=== PATIENT | female | born 1980 | race Caucasian/White ===

== ENCOUNTER → 2016-07-01 | Outpatient (CLI) | payer OTHER ==
[~2016-07-01] MED LIST: DARVOCET-N6 EACH/PAK PO; FIORICET 325 MG1 TAB PO; FLEXERIL10 MG PO; IBUPROFEN 600M600 MG PO; KEFLEX 500MG.500 MG PO; LISINOPRIL/HCTZ1 TA3 PO; LORTAB 5/500 501 TAB PO; LORTAB 500 MG-71 TAB PO; MEDROL 4MG. DOSE4 MG PO; MULTIVITAMIN1 TA2 PO; PHENERGAN VC +120 ML PO; VICODIN 5/500 T1 TAB PO; VICODIN 7.5/501 EACH PO; VOLTAREN75 MG PO
--- NOTE | 2016-07-07 11:35 | RADIOLOGY REPORT PS360 ---
DIG MAMM-DX CAIT W/AVWS W/CAD ORDERING PHYSICIAN : [facility] PATIENT AGE: 36 years GENDER: Female COMPARISON: Previous bilateral mammogram April 2014 INDICATION: Palpable area medial inferior left breast. Images were not reviewed by radiologist patient had emergency phone call hand left the department abruptly TECHNIQUE: MLO and cc view both breast as well as additional spot views at the inferior left breast FINDINGS: Right left breast appears similar to 2014 with no new areas of concern either breast. In fact CAD highlights no areas of concern either. Breast are of moderate density with slight additional fatty replacement since 2014 Additional spot views were performed in the area of palpable density at the medial inferior left breast. Spot views reveal no significant new findings. . Since I see no areas of concern on mammography at this point I do not believe the patient needs to return for ultrasound. However if this palpable area should persist or progress I would suggest CT return for ultrasound. Otherwise follow-up ultrasound and mammogram 6 months may be if the palpable area progress. If it does not a follow-up in one year the adequate. Based on mammography I would suggest a follow-up in one year at this point IMPRESSION------- No appreciable change either breast since 2013 by mammography . No areas of significant concern at the palpable area on today's spot views. . Follow-up in one year adequate based on imaging alone.. However if if palpable area persists a follow-up in 6 months mammography and ultrasound may be warranted,, but again radiographically I see no interval change nor areas of concern on mammography thus this coded as BI-RADS 2 from our perspective BI-RADS CATEGORY: 2_Benign RECOMMENDED FOLLOWUP: 12M 12 MONTH FOLLOW-UP (A letter has been sent to the patient regarding results of the study.)
== END ==
LOC: RAD 14:09
DX: Z12.31 Encounter for screening mammogram for malignant neoplasm of breast (principal)
CPT/HCPCS: G0204

== ENCOUNTER → 2017-02-07 | Outpatient (CLI) | payer OTHER ==
--- NOTE | 2017-02-09 09:11 | RADIOLOGY REPORT PS360 ---
DIG MAMM-DX UNI-LT W/CAD LEFT BREAST ULTRASOUND WITH AXILLA COMPARISON: 07/01/2016 INDICATION: Follow-up probably benign mammogram ORDERING PHYSICIAN: [facility] PATIENT AGE: 36 years TECHNIQUE: Left mammogram performed with spot compression views and left breast ultrasound FINDINGS: There is average fibroglandular tissue. Slight asymmetric density is present in the medial aspect of the left breast which is felt to be related to fibroglandular tissue on spot compression views. There is a persistent small area of asymmetric density in the medial aspect of the left breast probably related overlying fibroglandular tissue similar when compared to the previous exam. Left breast ultrasound: A 4 mm cyst is present in the retroareolar region with some minimal ductal ectasia. IMPRESSION: Benign findings. No evidence of malignancy. BI-RADS CATEGORY: 2_Benign RECOMMENDED FOLLOWUP: Continue screening mammogram in June 2017. Please correlate with physical exam. Negative mammogram and negative ultrasound does not exclude the possibility of malignancy. Any palpable abnormality should be managed on clinical basis. (A letter has been sent to the patient regarding results of the study.)
--- NOTE | 2017-02-09 09:12 | RADIOLOGY REPORT PS360 ---
DIG MAMM-DX UNI-LT W/CAD LEFT BREAST ULTRASOUND WITH AXILLA COMPARISON: 07/01/2016 INDICATION: Follow-up probably benign mammogram ORDERING PHYSICIAN: [facility] PATIENT AGE: 36 years TECHNIQUE: Left mammogram performed with spot compression views and left breast ultrasound FINDINGS: There is average fibroglandular tissue. Slight asymmetric density is present in the medial aspect of the left breast which is felt to be related to fibroglandular tissue on spot compression views. There is a persistent small area of asymmetric density in the medial aspect of the left breast probably related overlying fibroglandular tissue similar when compared to the previous exam. Left breast ultrasound: A 4 mm cyst is present in the retroareolar region with some minimal ductal ectasia. IMPRESSION: Benign findings. No evidence of malignancy. BI-RADS CATEGORY: 2_Benign RECOMMENDED FOLLOWUP: Continue screening mammogram in June 2017. Please correlate with physical exam. Negative mammogram and negative ultrasound does not exclude the possibility of malignancy. Any palpable abnormality should be managed on clinical basis. (A letter has been sent to the patient regarding results of the study.)
--- NOTE | 2017-02-09 09:12 | RADIOLOGY REPORT PS360 ---
DIG MAMM-DX UNI-LT W/CAD LEFT BREAST ULTRASOUND WITH AXILLA COMPARISON: 07/01/2016 INDICATION: Follow-up probably benign mammogram ORDERING PHYSICIAN: [facility] PATIENT AGE: 36 years TECHNIQUE: Left mammogram performed with spot compression views and left breast ultrasound FINDINGS: There is average fibroglandular tissue. Slight asymmetric density is present in the medial aspect of the left breast which is felt to be related to fibroglandular tissue on spot compression views. There is a persistent small area of asymmetric density in the medial aspect of the left breast probably related overlying fibroglandular tissue similar when compared to the previous exam. Left breast ultrasound: A 4 mm cyst is present in the retroareolar region with some minimal ductal ectasia. IMPRESSION: Benign findings. No evidence of malignancy. BI-RADS CATEGORY: 2_Benign RECOMMENDED FOLLOWUP: Continue screening mammogram in June 2017. Please correlate with physical exam. Negative mammogram and negative ultrasound does not exclude the possibility of malignancy. Any palpable abnormality should be managed on clinical basis. (A letter has been sent to the patient regarding results of the study.)
== END ==
LOC: RAD 12:42
DX: N60.02 Solitary cyst of left breast (principal)
CPT/HCPCS: G0206-LT